=== PATIENT | female | born 1980 | race Caucasian/White ===

== ENCOUNTER 2019-06-26 10:44 | Emergency (ER) | payer OTHER ==
[~2019-06-26] VITALS: Ht 157.5 cm; Wt 59.0 kg
[2019-06-26 10:54] VITALS: BP 129/64
[2019-06-26] MEDS ORDERED: IBUPROFEN 800 MG TAB PO ONE (11:15)
== END 2019-06-26 11:44 | disposition home or self-care (01) ==
LOC: EDBD 10:44 → ER 10:56
DX: S46.912A Strain of unspecified muscle, fascia and tendon at shoulder and upper arm level, left arm, initial encounter (principal); V43.52XA Car driver injured in collision with other type car in traffic accident, initial encounter; Y93.89 Activity, other specified; Y92.488 Other paved roadways as the place of occurrence of the external cause; Y99.8 Other external cause status
CPT/HCPCS: 73030

== ENCOUNTER 2021-10-26 07:49 | Emergency (ER) | payer OTHER ==
[~2021-10-26] VITALS: Ht 157.5 cm; Wt 63.5 kg
[2021-10-26] MEDS ORDERED: methylPREDNISolone SOD SUCC 125 MG/2 ML VL IV ONE (09:00)
[2021-10-26] MEDS ORDERED: PANTOPRAZOLE 40 MG TAB PO ONE (09:00)
[2021-10-26] MEDS ORDERED: diphenhdrAMINE HCL 50 MG/1 ML VL IV ONE (09:00)
[2021-10-26 10:09] LABS: Urine Bacteria FEW /hpf (None Seen); Urine Blood Negative /uL (Negative); Urine Mucus FEW (None Seen); Urine WBC 1 /hpf (0 - 5)
[2021-10-26 10:50] VITALS: BP 103/59
== END 2021-10-26 10:52 | disposition home or self-care (01) ==
LOC: ER 07:49
DX: L50.0 Allergic urticaria (principal); Z90.89 Acquired absence of other organs
CPT/HCPCS: 81001; 96374; 96375; 99284; J1200; J2930